=== PATIENT | male | born 1985 | race Asian ===

== ENCOUNTER 2024-04-22 08:46 | Outpatient (CLI) | payer OTHER, SELFPAY | END 2024-04-22 08:47 | disposition home or self-care (01) | PROVIDERS: PCP Family Medicine; Visit Provider Family Medicine | DX: Z13.228 Encounter for screening for other metabolic disorders (principal); Z13.220 Encounter for screening for lipoid disorders; Z13.0 Encounter for screening for diseases of the blood and blood-forming organs and certain disorders involving the immune mechanism | CPT/HCPCS: 80048; 80061; 85025 ==